=== PATIENT | male | born 1980 | race Caucasian/White ===

== ENCOUNTER 2017-11-28 15:26 | Emergency (ER) | payer OTHER ==
[~2017-11-28] VITALS: Ht 177.8 cm; Wt 74.2 kg
[~2017-11-28 15:26] MED LIST: NAPROSYN500 MG PO
[2017-11-28] MEDS ORDERED: ERYTHROMYC1 APPLICAT RIGHT EYE (16:44)
[2017-11-28 17:27] VITALS: BP 134/66
== END 2017-11-28 17:27 | disposition home or self-care (01) ==
LOC: EME 15:26
DX: S05.02XA Injury of conjunctiva and corneal abrasion without foreign body, left eye, initial encounter (principal); W22.8XXA Striking against or struck by other objects, initial encounter; Z88.8 Allergy status to other drugs, medicaments and biological substances
CPT/HCPCS: 99281; 99284